=== PATIENT | male | born 1975 | race American Indian/Alaskan Native ===

== ENCOUNTER 2019-11-11 11:09 | Emergency (ER) | payer SELFPAY ==
--- NOTE | 2019-11-11 11:50 | Emergency Department Report ---
Blank Doc - Documentation Documentation: 45-year-old male that presents with lower abdominal pain and right sided flank pain with dysuria. This initial assessment/diagnostic orders/clinical plan/treatment(s) is/are subject to change based on patient's health status, clinical progression and re- assessment by fellow clinical providers in the ED. Further treatment and workup at subsequent clinical providers discretion. Patient/guardians urged not to elope from the ED as their condition may be serious if not clinically assessed and managed. Initial orders include: 1- Patient sent to [facility] for further evaluation and treatment 2- UA 3- labs
[2019-11-11 12:27] LABS: Hematocrit 46.4 % (35.5-45.6); Hemoglobin 15.1 gm/dl (11.8-15.2); Mean Corpuscular HGB Conc 33 % (32-34); Mean Corpuscular Volume 84 fl (84-94); Platelet Count 200 K/mm3 (140-440); Red Blood Count 5.51 M/mm3 (3.65-5.03); Red Cell Distribution Width 14.6 % (13.2-15.2)
[2019-11-11 12:33] LABS: Bilirubin,Urine NEG (Negative); Blood,Urine SM (Negative); Color,Urine Yellow (Yellow); Protein,Urine <15 mg/dL mg/dL (Negative); Urobilinogen,Urine < 2.0 mg/dL (<2.0); WBC,Urine < 1.0 /HPF (0.0-6.0)
[2019-11-11 12:54] LABS: Alanine Aminotransferase 38 units/L (7-56); Albumin 4.5 g/dL (3.9-5); BUN/Creatinine Ratio 8; Blood Urea Nitrogen 11 mg/dL (9-20); Calcium 9.2 mg/dL (8.4-10.2); Hemolysis Index 12
[2019-11-11 13:59] LABS: Basophils % (Manual) 0 % (0.0-1.8); Eosinophils % (Manual) 0 % (0.0-4.3); Platelet Estimate Consistent w Auto; Total Cells Counted 100
[2019-11-11 16:39] VITALS: BP 145/84
--- NOTE | 2019-11-11 17:45 | Cat Scan Report ---
CT abdomen pelvis wo con INDICATION: back pain, pelvic pain. TECHNIQUE: All CT scans at this location are performed using the following dose modulation technique: Automated exposure control. CONTRAST: None. COMPARISON: None available. CT ABDOMEN: Evaluation of the parenchymal organs demonstrates small hepatic cysts. The left kidney co ntains 2 nonobstructing stones at the upper pole. One is larger measuring 6 mm. The remaining rectal organs are unremarkable. Negative for abdominal mass, fluid or inflammation. The bowel is not dilated or thickened. A normal a ppendix is identified. CT PELVIS: A large calcification is seen in the region of the left ureterovesical junction measuring 1 cm. Negative for pelvic mass, fluid or inflammation. IMPRESSION: 1. Nonobstructing left renal stones. 2. Large calcification at the left ureterovesical junction. This likely within the ureter. This could be confirmed with contrast-enhanced CT with delayed images as clinically indicated. Signer Name: Luis Yoo MD Signed: 11/11/2019 5:40 PM Workstation Name: [id number]
--- NOTE | 2019-11-11 18:16 | Emergency Department Report ---
ED Abdominal Pain HPI - General Chief Complaint: Abdominal Pain Stated Complaint: LOWER BACK PAIN/PELIVIC BURNING Time Seen by Provider: 11/11/19 11:49 Source: patient Mode of arrival: Ambulatory Limitations: No Limitations - History of Present Illness Initial Comments: 44-year-old male presents to ED with complaint of lower abdominal and lower back burning x6 months. Patient states he was previously given Cipro for his symptoms 3 months ago. Patient states his symptoms have continued. He denies any dysuria, hematuria, fever, vomiting or diarrhea. Patient states no pain currently. MD Complaint: abdominal pain -: month(s) (6) Location: suprapubic Radiation: back Migration to: no migration Severity: moderate Quality: burning Consistency: intermittent Improves With: nothing Worsens With: nothing Associated Symptoms: denies: nausea, vomiting, diarrhea, fever, dysuria, hematuria - Related Data Previous Rx's Medication Instructions Recorded Last Taken Type Naproxen [Naprosyn] 500 mg PO BID #20 tablet 11/11/19 Unknown Rx traMADoL [Ultram] 50 mg PO Q6HR PRN #7 tablet 11/11/19 Unknown Rx Allergies Allergy/AdvReac Type Severity Reaction Status Date / Time sulfamethoxazole Allergy Itching Verified 11/11/19 11:24 ED Review of Systems ROS: Stated complaint: LOWER BACK PAIN/PELIVIC BURNING Other details as noted in HPI Comment: All other systems reviewed and negative Constitutional: denies: chills, fever Gastrointestinal: abdominal pain. denies: nausea, vomiting, diarrhea Genitourinary: denies: dysuria, frequency, hematuria ED Past Medical Hx - Past Medical History Previous Medical History?: No - Surgical History Past Surgical History?: No - Social History Smoking Status: Never Smoker Substance Use Type: None - Medications Home Medications: Home Medications Medication Instructions Recorded Confirmed Last Taken Type Naproxen [Naprosyn] 500 mg PO BID #20 tablet 11/11/19 Unknown Rx traMADoL [Ultram] 50 mg PO Q6HR PRN #7 tablet 11/11/19 Unknown Rx ED Physical Exam - General Limitations: No Limitations General appearance: alert, in no apparent distress - Head Head exam: Present: atraumatic, normocephalic - Eye Eye exam: Present: normal appearance, EOMI - ENT ENT exam: Present: mucous membranes moist - Neck Neck exam: Present: normal inspection - Respiratory Respiratory exam: Present: normal lung sounds bilaterally. Absent: respiratory distress - Cardiovascular Cardiovascular Exam: Present: regular rate, normal rhythm - GI/Abdominal GI/Abdominal exam: Present: soft. Absent: distended, tenderness - Extremities Exam Extremities exam: Present: normal inspection - Back Exam Back exam: Absent: CVA tenderness (R), CVA tenderness (L) - Neurological Exam Neurological exam: Present: alert, oriented X3 - Psychiatric Psychiatric exam: Present: normal affect, normal mood - Skin Skin exam: Present: warm, dry, intact, normal color ED Course Vital Signs 11/11/19 11/11/19 11/11/19 11:26 16:37 17:00 Temperature 98.0 F 97.5 F L Pulse Rate 92 H 86 Respiratory 20 Rate Blood Pressure 121/83 145/84 O2 Sat by Pulse 100 99 Oximetry ED Medical Decision Making - Lab Data Result diagrams: 11/11/19 12:08 11/11/19 12:08 - Radiology Data Radiology results: report reviewed, image reviewed - Medical Decision Making Labs unremarkable. Nontender on exam. CT shows renal stones and ureteral calcification. No mention of hydronephrosis, unclear if this is a kidney stone. Pt's pain is not lateralized. Kidney function normal. Urine is negative for infection. Pt advised to f/u w/ urology. Return precautions given. Will d/c home at this time. - Differential Diagnosis UTI, kidney stones, diverticulitis Critical care attestation.: If time is entered above; I have spent that time in minutes in the direct care of this critically ill patient, excluding procedure time. ED Disposition Clinical Impression: Kidney stones Disposition: - TO HOME OR SELFCARE Is pt being admited?: No Condition: Stable Instructions: Kidney Stones (ED) Prescriptions: Naproxen [Naprosyn] 500 mg PO BID #20 tablet traMADoL [Ultram] 50 mg PO Q6HR PRN #7 tablet PRN Reason: Pain Referrals: JOCELINE MARIE MD [Primary Care Provider] - 3-5 Days MANGO BROOKE MD [Staff Physician] - 3-5 Days [facility] [Provider Group] - 3-5 Days Time of Disposition: 18:13
== END 2019-11-11 18:32 | disposition home or self-care (01) ==
LOC: EDBD → ED 11:09
DX: N20.0 Calculus of kidney (principal); Z79.899 Other long term (current) drug therapy; Z88.2 Allergy status to sulfonamides
CPT/HCPCS: 36415; 74176; 80053; 81001; 85007; 85025